=== PATIENT | male | born 1935 | race Caucasian/White ===

== ENCOUNTER 2016-06-03 05:51 | Day surgery (SDC) | payer MEDICARE ==
--- NOTE | ~2016-06-03 | EGD ---
EGD REPORT [facility] [address] [address] NAME: HARSHIL BABIN : [birth year] STATUS : REG [facility]#: [id number] AGE: 80 ADM/REG DATE : 06/03/16 MR#: [id number] REPORT SERV DATE: 06/03/16 DICTATED BY: RUBY RAMIRES DATE: 06/03/16 REPORT STATUS : Draft TRANSCRIBED BY: [employer] DATE: 06/03/16 [facility] Patient Name: Harshil Babin Date of : 1935 Attending MD: RUBY RAMIRES, Procedure Date No Time: 06/03/2016 Procedure: Colonoscopy Indications: Iron deficiency anemia Referring MD: Alton Valentin Medicines: Monitored Anesthesia Care Complications: No immediate complications. Estimated blood loss: None. Procedure: Pre-Anesthesia Assessment: - ASA Grade Assessment: III - A patient with severe systemic disease. After I obtained informed consent, the scope was passed under direct vision. Throughout the procedure, the patient's blood pressure, pulse, and oxygen saturations were monitored continuously. The CF [id number] was introduced through the anus and advanced to the cecum, identified by appendiceal orifice and ileocecal valve. The colonoscopy was performed without difficulty. The patient tolerated the procedure well. The quality of the bowel preparation was adequate. Findings: The perianal and digital rectal examinations were normal. A few small-mouthed diverticula were found in the sigmoid colon. The exam was otherwise without abnormality on direct and retroflexion views. Impression: - Diverticulosis in the sigmoid colon. - The examination was otherwise normal on direct and retroflexion views. Recommendation: - Patient has a contact number available for emergencies. The signs and symptoms of potential delayed complications were discussed with the patient. Return to normal activities tomorrow. Written discharge instructions were provided to the patient. - Return to previous diet. - Continue present medications. - Repeat colonoscopy is not recommended for screening purposes. Procedure Code(s): --- Professional --- EGD REPORT [facility] [address] [address] NAME: HARSHIL BABIN : [birth year] STATUS : REG [facility]#: [id number] AGE: 80 ADM/REG DATE : 06/03/16 MR#: [id number] REPORT SERV DATE: 06/03/16 DICTATED BY: RUBY RAMIRES DATE: 06/03/16 REPORT STATUS : Draft TRANSCRIBED BY: [employer] DATE: 06/03/16 [id number], Colonoscopy, flexible, proximal to splenic flexure; diagnostic, with or without collection of specimen(s) by brushing or washing, with or without colon decompression (separate procedure) Diagnosis Code(s): --- Professional --- K57.30, Diverticulosis of large intestine without perforation or abscess without bleeding D50.9, Iron deficiency anemia, unspecified CPT copyright 2013 [employer]. All rights reserved. The codes documented in this report are preliminary and upon first aid nurse review may be revised to meet current compliance requirements. RUBY RAMIRES, 06/03/2016 7:40 AM Number of Addenda: 0 Note Initiated On: 06/03/2016 7:13 AM Scope Withdrawal Time 0 hours 9 minutes 27 seconds [address] [place] [address]
--- NOTE | ~2016-06-03 | EGD ---
EGD REPORT [facility] [address] [address] NAME: HARSHIL BABIN : [birth year] STATUS : REG [facility]#: [id number] AGE: 80 ADM/REG DATE : 06/03/16 MR#: [id number] REPORT SERV DATE: 06/03/16 DICTATED BY: RUBY RAMIRES DATE: 06/03/16 REPORT STATUS : Draft TRANSCRIBED BY: [employer] [facility] DATE: 06/03/16 [facility] Patient Name: Harshil Babin Date of : 1935 Attending MD: RUBY RAMIRES, Procedure Date No Time: 06/03/2016 Procedure: Upper GI endoscopy Indications: Iron deficiency anemia Referring MD: Alton Valentin Medicines: Monitored Anesthesia Care Complications: No immediate complications. Estimated blood loss: None. Procedure: Pre-Anesthesia Assessment: - ASA Grade Assessment: III - A patient with severe systemic disease. After obtaining informed consent, the endoscope was passed under direct vision. Throughout the procedure, the patient's blood pressure, pulse, and oxygen saturations were monitored continuously. The GIF [id number] was introduced through the mouth, and advanced to the second part of duodenum. The upper GI endoscopy was accomplished without difficulty. The patient tolerated the procedure well. Findings: The esophagus was normal. Three non-bleeding cratered gastric ulcers with no stigmata of bleeding were found in the gastric antrum. The largest lesion was 10 mm in largest dimension. Biopsies were taken with a cold forceps for histology. Verification of patient identification for the specimen was done. Estimated blood loss was minimal. Inflammation was found in the entire examined stomach. Biopsies were taken with a cold forceps for histology. The cardia and gastric fundus were normal on retroflexion. The examined duodenum was normal. Impression: - Normal esophagus. - Gastric ulcers with clean base. Biopsied. - Gastritis. Biopsied. - Normal examined duodenum. Recommendation: - Patient has a contact number available for emergencies. The signs and symptoms of potential delayed complications were discussed with the patient. Return to normal activities tomorrow. Written discharge instructions were provided to the patient. EGD REPORT [address] [address] NAME: HARSHIL BABIN : [birth year] STATUS : REG [facility] PAT#: [id number] AGE: 80 ADM/REG DATE : 06/03/16 MR#: [id number] REPORT SERV DATE: 06/03/16 DICTATED BY: RUBY RAMIRES DATE: 06/03/16 REPORT STATUS : Draft TRANSCRIBED BY: [id number] [facility] DATE: 06/03/16 - Return to previous diet. - Continue present medications. - No aspirin, ibuprofen, naproxen, or other non-steroidal anti-inflammatory drugs except one baby aspirin daily. - Use Protonix (pantoprazole) 40 mg PO daily. - Await pathology results. Procedure Code(s): --- Professional --- 68130, Esophagogastroduodenoscopy, flexible, transoral; with biopsy, single or multiple Diagnosis Code(s): --- Professional --- K25.9, Gastric ulcer, unspecified as acute or chronic, without hemorrhage or perforation K29.70, Gastritis, unspecified, without bleeding D50.9, Iron deficiency anemia, unspecified CPT copyright 2013 [employer]. All rights reserved. The codes documented in this report are preliminary and upon harpsichord maker review may be revised to meet current compliance requirements. RUBY RAMIRES, 06/03/2016 7:38 AM Number of Addenda: 0 Note Initiated On: 06/03/2016 7:09 AM Scope Withdrawal Time 0 hours 0 minutes 0 seconds [address] [place], [place] [address]
[~2016-06-03 05:51] MED LIST: ASAB PO; BETAP120 PO; BETAPACE80 PO; CARDIZEM LA180 MG PO; CRESTOR10 PO; DEMA10T PO; DSS PO; ELIQUIS 2.5 MG2.5 MG PO; FERROUS SULF325 M1 PO; FIORICET OR; FIORICET-COD 51 EACH PO; FLOMAX4 PO; GLUCOTROL5 PO; GLUCPH PO; LEVOTHYROXIN50 MCG PO; LEVOTHYROXIN75 MCG PO; LEVOTHYROXIN88 MCG PO; LISINOPRIL40 MG PO; METHOC750B PO; MICRO-K10 MEQ PO; NEUR300 PO; NEXIUM40 PO; NORCO1 TA1 PO; NORCO1 TAB PO; NORV10 PO; PCET PO; PRAVACHOL40 MG PO; PRIN10 PO; PROAIRRESP INH; ULTRAM ER100 MG PO; VITAMIN D31000 UNIT PO; VITE PO; ZOCOR20 PO; [UNRECOGNIZED DRUG - OTHER]; [UNRECOGNIZED DRUG - REMARK]
== END 2016-06-03 23:59 | disposition home or self-care (01) ==
LOC: DMU 05:51
PROVIDERS: Internal Medicine Gastroenterology
PROC: 0DB68ZX Excision of Stomach, Via Natural or Artificial Opening Endoscopic, Diagnostic (ICD-10-PCS; principal; 2016-06-03 07:00)
PROC: 0DJD8ZZ Inspection of Lower Intestinal Tract, Via Natural or Artificial Opening Endoscopic (ICD-10-PCS; 2016-06-03 07:00)
DX: K29.50 Unspecified chronic gastritis without bleeding (principal); B96.81 Helicobacter pylori [H. pylori] as the cause of diseases classified elsewhere; K25.9 Gastric ulcer, unspecified as acute or chronic, without hemorrhage or perforation; D50.9 Iron deficiency anemia, unspecified; K57.30 Diverticulosis of large intestine without perforation or abscess without bleeding; I10 Essential (primary) hypertension; E11.9 Type 2 diabetes mellitus without complications; E78.00 Pure hypercholesterolemia, unspecified; E03.9 Hypothyroidism, unspecified; G47.33 Obstructive sleep apnea (adult) (pediatric); J45.909 Unspecified asthma, uncomplicated; I25.10 Atherosclerotic heart disease of native coronary artery without angina pectoris; Z95.1 Presence of aortocoronary bypass graft; G62.9 Polyneuropathy, unspecified; H91.90 Unspecified hearing loss, unspecified ear; Z87.891 Personal history of nicotine dependence; Z79.899 Other long term (current) drug therapy; Z79.84 Long term (current) use of oral hypoglycemic drugs; Z79.82 Long term (current) use of aspirin; Z79.891 Long term (current) use of opiate analgesic
CPT/HCPCS: 82962; 88305; 88342